=== PATIENT | female | born 1945 | race Caucasian/White ===

== ENCOUNTER → 2017-02-19 | Outpatient (CLI) | payer MEDICARE ==
[~2017-02-19] MED LIST: ACTOS45 MG PO; AMARYL4 MG PO; ASPIR-LOW81 MG PO; ASPIRIN E.C.325 MG PO; ASPIRIN81 M1 PO; CARAFATE1 G1 PO; FERREX 150150 MG PO; GLIMEPIRIDE4 MG PO; GLUCOPHAGE500 MG PO; HEP-FORTE1 CAP PO; HYDROCODONE BIT1 T11 PO; IMDUR30 MG PO; ISOSORBIDE DINI30 MG PO; LANSOPRAZOLE30 MG PO; LASIX40 MG PO; LEVAQUIN750 MG PO; LOPRESSOR25 MG PO; METFORMIN1000 MG PO; METFORMIN500 MG PO; METOCLOPRAMIDE10 MG PO; METOCLOPRAMIDE5 MG PO; Metformin Hydr500 MG PO; NAPROSYN500 MG PO; NORCO 5-325 TA1 EACH PO; PLAVIX75 MG PO; PREVACID30 M1 PO; PROTONIX40 MG PO; QUINAPRIL10 MG PO; SIMVASTATIN40 MG PO; SYNTHROID,LEV100 MCG PO; TRAMADOL HCL50 MG PO; TYLENOL ARTHRI650 MG PO; XANAX0.5 MG PO
== END | disposition home or self-care (01) ==
LOC: MEDIPORT 11:00
DX: Z45.2 Encounter for adjustment and management of vascular access device (principal)

== ENCOUNTER → 2017-03-24 | Outpatient (CLI) | payer MEDICARE | END | disposition home or self-care (01) | LOC: MEDIPORT 02:37 | DX: Z45.2 Encounter for adjustment and management of vascular access device (principal) ==

== ENCOUNTER → 2017-05-26 | Outpatient (CLI) | payer MEDICARE | END | disposition home or self-care (01) | LOC: MEDIPORT 02:50 | DX: Z45.2 Encounter for adjustment and management of vascular access device (principal) ==

== ENCOUNTER → 2017-06-23 | Outpatient (CLI) | payer MEDICARE | END | disposition home or self-care (01) | LOC: MEDIPORT 03:05 | DX: Z45.2 Encounter for adjustment and management of vascular access device (principal) ==

== ENCOUNTER → 2017-07-28 | Outpatient (CLI) | payer MEDICARE ==
[2017-07-28 12:33] VITALS: BP 111/63
--- NOTE | 2017-07-28 12:46 | NUR ---
PT.'S MEDIPORT FLUSHED PER POLICY PT. TOLERATED WELL.
== END | disposition home or self-care (01) ==
LOC: MEDIPORT 03:13
DX: Z45.2 Encounter for adjustment and management of vascular access device (principal)

== ENCOUNTER → 2017-08-18 | Outpatient (CLI) | payer MEDICARE ==
--- NOTE | 2017-08-18 13:01 | NUR ---
CLIENT HERE FOR MEDIPORT BLOOD DRAW THEN FLUSH. PORT WAS PREPPED X 2 AND ACCESSED USING ASEPTIC TECHNIQUE. BRISK BLOOD RETURN NOTED. APPROPRIATE AMOUNT OF BLOOD WAS WASTED THEN SPECIMEN OBTAINED AND SENT TO LAB. PORT WAS THEN FLUSHED WITH SALINE FOLLOWED BY HEPARIN. NEEDLE WITHDRAWN. NO BLEEDING SEEN. BANDAID APPLIED TO SITE. CLIENT THEN AMBULATED FROM TREATMENT AREA IN STABLE CONDITION
[2017-08-18 13:03] LABS: BASO # 0.1 10*3/uL (0.0-0.1); BASO % 0.8 % (0.0-1.0); EOS # 0.2 10*3/uL (0.0-0.4); EOS % 2.2 % (1.0-4.0); HEMATOCRIT 27.5 % (37.0-47.0); HEMOGLOBIN 8.5 g/dl (12.0-16.0); LYMPH # 2.1 10*3/uL (1.3-4.4); LYMPH % 24.4 % (27.0-41.0); MEAN CELL VOLUME 77.5 fl (81.0-99.0); MEAN CORPUSCULAR HGB 23.9 pg (27.0-31.0); MEAN CORPUSCULAR HGB CONC 30.9 g/dl (33.0-37.0); MEAN PLATELET VOLUME 10.9 fl (9.6-12.3); MONO # 0.6 10*3/uL (0.1-1.0); MONO % 7.2 % (3.0-9.0); NEUT # 5.6 10*3/uL (2.3-7.9); PLATELET COUNT AUTOMATED 304 10*3/uL (130-400); RED BLOOD COUNT 3.55 10*6/uL (4.10-5.10); RED CELL DISTRI WIDTH 16.7 % (0-14.5); WHITE BLOOD COUNT 8.6 10*3/uL (4.8-10.8)
[2017-08-18 13:30] LABS: ALBUMIN 3.2 gm/dl (3.1-4.5); CREATININE 1.79 mg/dL (0.55-1.02); FREE T4 1.28 ng/dl (0.76-1.46); POTASSIUM 4.8 mmol/L (3.5-5.1); TOTAL PROTEIN 6.8 gm/dL (6.4-8.2)
[2017-08-18 13:36] LABS: THYROID STIM HORMONE (HS) 0.44 uIU/ml (0.358-4.75)
[2017-08-18 14:56] LABS: VITAMIN D, 25-HYDROXY 31.1 ng/mL (30-100)
== END | disposition home or self-care (01) ==
LOC: MEDIPORT 02:05 → LAB 02:05 → MEDIPORT 13:00
PROVIDERS: Internal Medicine
DX: Z45.2 Encounter for adjustment and management of vascular access device (principal); R79.89 Other specified abnormal findings of blood chemistry

== ENCOUNTER → 2017-09-22 | Outpatient (CLI) | payer MEDICARE ==
--- NOTE | 2017-09-22 13:04 | NUR ---
CLIENT AMBULATORY TO TREATMENT AREA FOR PORT FLUSH. PORT WAS PREPPED X 2 AND ACCESSED USING ASEPTIC TECHNIQUE. SOME BLOOD RETURN NOTED. PORT WAS FLUSHED WITH SALINE FOLLOWED BY HEPARIN. NEEDLE WITHDRAWN AND BANDAID APPLIED TO SITE. NO BLEEDING SEEN. CLIENT THEN AMBULATED FROM TREATMENT AREA IN STABLE CONDITION
== END | disposition home or self-care (01) ==
LOC: MEDIPORT 01:17
DX: Z45.2 Encounter for adjustment and management of vascular access device (principal)

== ENCOUNTER → 2017-10-20 | Outpatient (CLI) | payer MEDICARE ==
--- NOTE | 2017-10-20 13:00 | NUR ---
PT HERE FOR MEDIPORT FLUSH PER POLICY. [facility] MEDIPORT ACCESSED WITH NONCORING NEEDLE PER POLICY. HEPARIN FLUSH COMPLETE PER POLICY. NEEDLE REMOVED DRESSING APPLIED. TOLERATED WELL. RAMA ORTIZ RN
== END | disposition home or self-care (01) ==
LOC: MEDIPORT 03:45
DX: Z45.2 Encounter for adjustment and management of vascular access device (principal)

== ENCOUNTER → 2017-11-20 | Outpatient (CLI) | payer MEDICARE | END | disposition home or self-care (01) | LOC: MEDIPORT 00:33 | DX: Z45.2 Encounter for adjustment and management of vascular access device (principal) ==

== ENCOUNTER → 2017-12-30 | Outpatient (CLI) | payer MEDICARE | END | disposition home or self-care (01) | LOC: MEDIPORT 00:23 | DX: Z45.2 Encounter for adjustment and management of vascular access device (principal) ==

== ENCOUNTER → 2018-01-27 | Outpatient (CLI) | payer MEDICARE | END | disposition home or self-care (01) | LOC: MEDIPORT 00:34 | DX: Z45.2 Encounter for adjustment and management of vascular access device (principal) ==

== ENCOUNTER → 2018-02-24 | Outpatient (CLI) | payer MEDICARE | END | disposition home or self-care (01) | LOC: MEDIPORT 00:19 | DX: Z45.2 Encounter for adjustment and management of vascular access device (principal) ==

== ENCOUNTER → 2018-08-04 | Outpatient (CLI) | payer MEDICARE | END | disposition home or self-care (01) | LOC: MEDIPORT 07-28 11:00 → EDSTATUS 07-28 11:00 → MEDIPORT 00:11 | DX: Z45.2 Encounter for adjustment and management of vascular access device (principal) ==

== ENCOUNTER → 2018-09-01 | Outpatient (CLI) | payer MEDICARE | END | disposition home or self-care (01) | LOC: MEDIPORT 08:21 | DX: Z45.2 Encounter for adjustment and management of vascular access device (principal) ==

== ENCOUNTER → 2018-10-06 | Outpatient (CLI) | payer MEDICARE | END | disposition home or self-care (01) | LOC: MEDIPORT 07:51 | DX: Z45.2 Encounter for adjustment and management of vascular access device (principal) ==

== ENCOUNTER → 2018-12-01 | Outpatient (CLI) | payer MEDICARE ==
[~2018-12-01] MED LIST changes: +AMARYL1 M1 PO; +ASPIRIN325 M2 PO; -ASPIRIN81 M1 PO; +CEFUROXIME AXE250 MG PO; +IMDUR SA30 MG PO; +METOPROLOL TART50 M1 PO; +PANTOPRAZOLE SO40 MG PO; +PRILOSEC20 M1 PO
--- NOTE | 2018-12-01 11:15 | NUR ---
CLIENT AMBULATORY TO TREATMENT AREA FOR ROUTINE PORT FLUSH. PORT WAS PREPPED X 2 AND ACCESSSED USING ASEPTIC TECHNIQUE. BRISK BLOOD RETURN WAS NOTED. PORT WAS FLUSHED WITH SALINE FOLLOWED BY HEPARIN. NEEDLE WAS WITHDRAWN.BANDAID TO SITE. NO BLEEDING SEEN. CLIENT THEN AMBULATED FROM TREATMENT AREA IN STABLE CONDITION
== END | disposition home or self-care (01) ==
LOC: MEDIPORT 00:57
DX: Z45.2 Encounter for adjustment and management of vascular access device (principal)

== ENCOUNTER → 2018-12-29 | Outpatient (CLI) | payer MEDICARE ==
--- NOTE | 2018-12-29 11:11 | NUR ---
PT HERE FOR MEDIPORT FLUSH. [facility] MEDIPORT ACCESSED WITH NONCORING NEEDLE AFTER SITE PREPPED. PROMPT BLOOD RETURN NOTED. FLUSHED PER POLICY. PATIENT TOLERATED WELL. NEEDLE REMOVED. NO BLEEDING NOTED. DRESSING APPLIED. RAMA ORTIZ RN
== END | disposition home or self-care (01) ==
LOC: MEDIPORT 01:43
DX: Z45.2 Encounter for adjustment and management of vascular access device (principal)

== ENCOUNTER → 2018-12-31 | Outpatient (CLI) | payer MEDICARE | END | disposition home or self-care (01) | LOC: RAD 12:00 | DX: J44.9 Chronic obstructive pulmonary disease, unspecified (principal); I10 Essential (primary) hypertension; E11.9 Type 2 diabetes mellitus without complications; F17.200 Nicotine dependence, unspecified, uncomplicated ==

== ENCOUNTER → 2019-02-18 | Outpatient (CLI) | payer MEDICARE ==
[2019-02-18 14:55] LABS: BASO # 0.1 10*3/uL (0.0-0.1); BASO % 0.6 % (0.0-1.0); EOS % 0.3 % (1.0-4.0); HEMATOCRIT 26.2 % (37.0-47.0); HEMOGLOBIN 8.3 g/dl (12.0-16.0); LYMPH % 7.9 % (27.0-41.0); MEAN CELL VOLUME 100.4 fl (81.0-99.0); MEAN CORPUSCULAR HGB 31.8 pg (27.0-31.0); MEAN CORPUSCULAR HGB CONC 31.7 g/dl (33.0-37.0); MEAN PLATELET VOLUME 10.7 fl (9.6-12.3); MONO # 0.7 10*3/uL (0.1-1.0); MONO % 5.7 % (3.0-9.0); NEUT # 10.4 10*3/uL (2.3-7.9); NEUT % 84.8 % (47.0-73.0); PLATELET COUNT AUTOMATED 263 10*3/uL (130-400); RED BLOOD COUNT 2.61 10*6/uL (4.10-5.10); RED CELL DISTRI WIDTH 15.4 % (0-14.5); WHITE BLOOD COUNT 12.3 10*3/uL (4.8-10.8)
[2019-02-18 15:25] LABS: ALBUMIN 2.3 gm/dl (3.1-4.5); CREATININE 4.21 mg/dL (0.55-1.02); POTASSIUM 4.4 mmol/L (3.5-5.1); TOTAL PROTEIN 6.4 gm/dL (6.4-8.2)
== END | disposition home or self-care (01) ==
LOC: CANPRECLI → MEDIPORT 01-26 11:00 → LAB 14:15 → MEDIPORT 03-02 11:00
PROVIDERS: Internal Medicine; Internal Medicine Hematology & Oncology
DX: Z45.2 Encounter for adjustment and management of vascular access device (principal); C7A.1 Malignant poorly differentiated neuroendocrine tumors; K76.9 Liver disease, unspecified; N17.9 Acute kidney failure, unspecified

== ENCOUNTER → 2019-02-18 | Outpatient (CLI) | payer MEDICARE ==
--- NOTE | 2019-02-18 14:30 | NUR ---
PATIENT ARRIVED TO OPS VIA WHEELCHAIR W/ OUT INCIDENT. CONDITION STABLE. PATIENT FOR BLOOD DRAW VIA MEDIPORT. PORT ACCESSED AND SPECIMEN OBTAINED. SPECIMEN SENT TO LAB. LAB PHONED TO INFORM. PORT FLUSHED. PERFORMED ACCORDING TO [facility] POLICY/PROCEDURE.
== END | disposition home or self-care (01) ==
LOC: LAB 13:41
DX: Z45.2 Encounter for adjustment and management of vascular access device (principal); N17.9 Acute kidney failure, unspecified; K76.9 Liver disease, unspecified; C7A.1 Malignant poorly differentiated neuroendocrine tumors

== ENCOUNTER → 2019-03-07 | Outpatient (CLI) | payer MEDICARE ==
--- NOTE | 2019-03-07 14:52 | NUR ---
1408- MEDIPORT ACCESSED WITH NON-CORING NEEDLE AFTER CLEANSING WITH CHLORAPREP. 10CC OF BLOOD WITHDRAWN AND DISCARDED. 2 TUBES OF BLOOD SUPPLIED BY LAB FILLED AND PORT FLUSHED PER POLICY. STERILE 2X2 APPLIED TO SITE. CLEAN CATCH URINE SPECIMEN COLLECTED AND ALL THREE TUBES SENT TO LAB VIA TUBE TRANSPORT SYSTEM.
[2019-03-07 16:49] LABS: BILIRUBIN NEGATIVE (NEGATIVE); BLOOD TRACE-INTACT (NEGATIVE); CLARITY CLEAR (CLEAR); COLOR YELLOW (YELLOW); GLUCOSE NEGATIVE (NEGATIVE); KETONE NEGATIVE (NEGATIVE); LEUKO ESTERASE NEGATIVE (NEGATIVE); NITRITE NEGATIVE (NEGATIVE); PH 5.5 (5.0-9.0); SPECIFIC GRAVITY 1.015 (1.005-1.030); UROBILINOGEN 0.2 E.U./dl (0.2-1.0)
[2019-03-07 17:01] LABS: HEMATOCRIT 25.8 % (37.0-47.0); HEMOGLOBIN 8.2 g/dl (12.0-16.0); MEAN CORPUSCULAR HGB 30.8 pg (27.0-31.0); MEAN CORPUSCULAR HGB CONC 31.8 g/dl (33.0-37.0); MEAN PLATELET VOLUME 11.2 fl (9.6-12.3); PLATELET COUNT AUTOMATED 89 10*3/uL (130-400); RED BLOOD COUNT 2.66 10*6/uL (4.10-5.10); WHITE BLOOD COUNT 2.7 10*3/uL (4.8-10.8)
[2019-03-07 17:02] LABS: BACTERIA 1+; RBC 0-2 rbc/hpf (0-2); WBC 0-2 wbc/hpf (0-5)
[2019-03-07 17:05] LABS: ALBUMIN 2.3 gm/dl (3.1-4.5); CREATININE 2.22 mg/dL (0.55-1.02); PHOSPHOROUS 3.9 mg/dL (2.5-4.9); POTASSIUM 4.8 mmol/L (3.5-5.1)
[2019-03-07 17:42] LABS: OVALOCYTES FEW; TOTAL CELLS COUNTED 100 #CELLS
[2019-03-07 17:43] LABS: PLATELET SUFFICIENCY LOW (NORMAL); VACUOLATION OF NEUTROPHILS SLIGHT
== END | disposition home or self-care (01) ==
LOC: LAB 13:26
PROVIDERS: Internal Medicine Nephrology
DX: Z45.2 Encounter for adjustment and management of vascular access device (principal); N17.9 Acute kidney failure, unspecified; Z79.899 Other long term (current) drug therapy